=== PATIENT | female | born 1985 | race Two or more races ===

== ENCOUNTER 2022-09-22 21:28 | Emergency (ER) | payer OTHER ==
[~2022-09-22] VITALS: Ht 152.4 cm; Wt 104.3 kg
[~2022-09-22 21:28] MED LIST: CIPRO500 MG PO; LEVSIN0.125 MG PO; PRENATAL1 TAB; ZANTAC300 MG PO; ZOFRAN4 MG PO
[2022-09-23] MEDS ORDERED: DICLOFENAC SOD100 MG PO (04:04)
== END 2022-09-23 04:09 ==
LOC: ER 21:28
DX: M77.8 Other enthesopathies, not elsewhere classified (principal)